=== PATIENT | female | born 1955 | race Caucasian/White ===

== ENCOUNTER 2017-11-04 04:57 | Emergency (ER) | payer MEDICAID, OTHER ==
[~2017-11-04] VITALS: Ht 157.5 cm; Wt 90.7 kg
--- NOTE | 2017-11-04 05:10 | NUR ---
Patient ambulated to ER with steady gait, reports she has pain on the knees, was trying to feel better so she can sleep, took several pills: tylenol w/ codeine, xanax, meloxicam, and oxycodone about 2 hours ago and was driven to ER by friend, took some Narcan on the way to ER, c/o drug overdose. Patient restless, reports feeling weird and anxious, denies suicidal ideation.
--- NOTE | 2017-11-04 05:15 | NUR ---
Dr. Reyes at bedside for MSE.
[2017-11-04 05:39] LABS: *BILIRUBIN,URIN NEGATIVE (NEGATIVE); *BLOOD, URINE Trace-intact (NEGATIVE); *CLARITY,URINE CLEAR (CLEAR); *COLOR,URINE YELLOW (YELLOW); *KETONES,URINE NEGATIVE (NEGATIVE); *PROTEIN,URINE NEGATIVE (NEGATIVE); *UROBILINOGEN,URINE 0.2 E.U./dl (NORMAL); LEUKOCYTE ESTERASE ,URINE 1+ (NEGATIVE); NITRITE, URINE NEGATIVE (NEGATIVE); UGLUCOSE NEGATIVE (NEGATIVE)
[2017-11-04 05:55] LABS: BACTERIA,URINE NONE SEEN /HPF (NONE SEEN); SQUAMOUS EPITHELIAL CELL,UR FEW /HPF (NONE SEEN)
[2017-11-04 05:59] LABS: BASOPHILS # (AUTO) 0.1 K/uL (0.0-8.0); BASOPHILS % (AUTO) 1.7 % (0.0-2.0); EOSINOPHILS # (AUTO) 0.3 K/uL (0.0-0.7); EOSINOPHILS % (AUTO) 4.2 % (0.0-7.0); HEMATOCRIT 35.1 % (31.2-41.9); HEMOGLOBIN 12.3 g/dL (10.9-14.3); LYMPHOCYTES # (AUTO) 3.3 K/uL (20.0-40.0); LYMPHOCYTES % (AUTO) 45.5 % (20.5-51.5); MEAN CORPUSCULAR HEMOGLOBIN 29.4 uug (24.7-32.8); MEAN CORPUSCULAR HGB CONC 35 g/dL (32.3-35.6); MEAN CORPUSCULAR VOLUME 84.1 fL (75.5-95.3); MONOCYTES # (AUTO) 0.5 K/uL (2.0-10.0); MONOCYTES % (AUTO) 7.2 % (0.0-11.0); NEUTROPHILS % (AUTO) 41.4 % (38.5-71.5); PLATELET COUNT (AUTO) 145 K/uL (179-408); RED BLOOD CELL COUNT(AUTO) 4.17 MIL/uL (3.63-4.92); WHITE BLOOD COUNT (AUTO) 7.4 K/uL (3.8-11.8)
[2017-11-04 06:06] LABS: *AMPHETAMINE, URINE NEGATIVE (NEGATIVE); *BARBITURATE, URINE NEGATIVE (NEGATIVE); *CANNABINOID, URINE NEGATIVE (NEGATIVE); *COCCAINE, URINE NEGATIVE (NEGATIVE); *OPIATE, URINE POSITIVE (NEGATIVE); *PHENCYCLIDINE SCREEN,URINE NEGATIVE (NEGATIVE)
[2017-11-04 06:13] LABS: CARBON DIOXIDE 26 mmol/L (21-32); CHLORIDE 105 mmol/L (98-107); CREATININE 1.1 mg/dL (0.6-1.3); GLUCOSE 95 mg/dL (74-106); POTASSIUM 3.8 mmol/L (3.5-5.1); UREA NITROGEN, BLOOD 20 mg/dL (7-18)
[2017-11-04 06:16] LABS: ETHANOL < 3 MG/DL (0-0)
--- NOTE | 2017-11-04 06:20 | NUR ---
Notified Russ Ware [facility] for psych evaluation. ETA in 1 hour ~3420.
--- NOTE | 2017-11-04 06:23 | NUR ---
Patient stated she wants to go home. notified.
[2017-11-04 06:26] LABS: ACETAMINOPHEN < 2.0 ug/mL (10-30); ALANINE AMINOTRANSFERASE 24 U/L (14-59); ALKALINE PHOSPHATASE 79 U/L (50-136); ASPARTATE AMINOTRANSFERASE 20 U/L (15-37); BILIRUBIN,DIRECT 0.1 mg/dL (0.0-0.2); BILIRUBIN,TOTAL 0.3 mg/dL (0.2-1.0); TOTAL PROTEIN, SERUM 7.8 g/dL (6.4-8.2)
--- NOTE | 2017-11-04 06:53 | NUR ---
Russ Ware LCSW arrived to ER.
--- NOTE | 2017-11-04 06:56 | NUR ---
SBAR report passed to Deneen CALERO.
--- NOTE | 2017-11-04 07:01 | NUR ---
Russ Ware at bedside for psych evaluation.
[2017-11-04] MEDS ORDERED: LORAZEPAM 0.5 MG TABLET PO ONE (07:15)
[2017-11-04] MEDS ORDERED: LORAZEPAM 1 MG TABLET ONE (07:19)
--- NOTE | 2017-11-04 07:35 | NUR ---
Patient discharged to home in stable conditon. Written and verbal after care instructions given. Patient verbalizes understanding of instructions.pt walks in steady gait. friend came and picker machine operator the pt.
[2017-11-04 07:59] VITALS: BP 129/81
[2017-11-04 09:10] LABS: EOSINOPHILS % (MANUAL) 2 % (0-8); LYMPHOCYTES % (MANUAL) 45 % (20-40); METAMYELOCYTES % 1 % (0-1); MONOCYTES % (MANUAL) 6 % (2-10); NEUTROPHILS % (MANUAL) 43 % (42-75)
[2017-11-04 09:13] LABS: REACTIVE LYMPHOCYTES 3 % (0-0)
== END 2017-11-04 07:40 | disposition home or self-care (01) ==
LOC: ER 05:02
DX: F32.9 Major depressive disorder, single episode, unspecified (principal); E78.5 Hyperlipidemia, unspecified
CPT/HCPCS: 36415; 71045; 80307; 85025; 93005; A4663; G0480; G0480-TC

== ENCOUNTER 2018-10-13 07:05 | Emergency (ER) | payer MEDICARE, OTHER ==
[~2018-10-13] VITALS: Ht 157.5 cm; Wt 93.0 kg
[2018-10-13] MEDS ORDERED: ROSU20TA31 PO (07:23)
[2018-10-13] MEDS ORDERED: LEVO112T2 PO (07:23)
[2018-10-13] MEDS ORDERED: PANT40TA4 PO (07:23)
[2018-10-13] MEDS ORDERED: ASPI-605 PO (07:23)
[2018-10-13] MEDS ORDERED: IRON (07:23)
[2018-10-13] MEDS ORDERED: ESCI10TA PO (07:23)
[2018-10-13] MEDS ORDERED: HYDR-3980 PO (07:23)
--- NOTE | 2018-10-13 07:28 | NUR ---
PT IS IN ROOM #5A. DR WISDOM EVALUATED THE PT.
--- NOTE | 2018-10-13 07:30 | NUR ---
Patient is resting comfortably on gurney while using her personal electronic device, NAD.
--- NOTE | 2018-10-13 07:37 | NUR ---
Urine cup was provided for specimen.
[2018-10-13 07:48] LABS: BASOPHILS % (AUTO) 0.4 % (0.0-2.0); HEMATOCRIT 36.8 % (31.2-41.9); HEMOGLOBIN 12.3 g/dL (10.9-14.3); LYMPHOCYTES # (AUTO) 1.1 K/uL (20.0-40.0); LYMPHOCYTES % (AUTO) 16.2 % (20.5-51.5); MEAN CORPUSCULAR HEMOGLOBIN 29.2 uug (24.7-32.8); MEAN CORPUSCULAR HGB CONC 34 g/dL (32.3-35.6); MEAN CORPUSCULAR VOLUME 87.3 fL (75.5-95.3); MONOCYTES # (AUTO) 0.1 K/uL (2.0-10.0); NEUTROPHILS # (AUTO) 5.4 K/uL (1.8-8.9); NEUTROPHILS % (AUTO) 81.4 % (38.5-71.5); PLATELET COUNT (AUTO) 190 K/uL (179-408); RED BLOOD CELL COUNT(AUTO) 4.21 MIL/uL (3.63-4.92); WHITE BLOOD COUNT (AUTO) 6.7 K/uL (3.8-11.8)
[2018-10-13 07:52] LABS: *BILIRUBIN,URIN NEGATIVE (NEGATIVE); *BLOOD, URINE 2+ (NEGATIVE); *CLARITY,URINE CLEAR (CLEAR); *COLOR,URINE YELLOW (YELLOW); *KETONES,URINE NEGATIVE (NEGATIVE); *UROBILINOGEN,URINE 0.2 E.U./dl (NORMAL); LEUKOCYTE ESTERASE ,URINE TRACE (NEGATIVE); NITRITE, URINE NEGATIVE (NEGATIVE); UGLUCOSE NEGATIVE (NEGATIVE)
[2018-10-13 08:00] LABS: CARBON DIOXIDE 28 mmol/L (21-32); CHLORIDE 100 mmol/L (98-107); CREATININE 0.8 mg/dL (0.6-1.3); ETHANOL < 3 MG/DL (0-0); GLUCOSE 159 mg/dL (74-106); POTASSIUM 4.8 mmol/L (3.5-5.1); UREA NITROGEN, BLOOD 35 mg/dL (7-18)
[2018-10-13 08:04] LABS: ACETAMINOPHEN < 2.0 ug/mL (10-30); ALANINE AMINOTRANSFERASE 23 U/L (14-59); ALKALINE PHOSPHATASE 79 U/L (50-136); ASPARTATE AMINOTRANSFERASE 14 U/L (15-37); BILIRUBIN,DIRECT 0.1 mg/dL (0.0-0.2); BILIRUBIN,TOTAL 0.2 mg/dL (0.2-1.0); TOTAL PROTEIN, SERUM 7.5 g/dL (6.4-8.2)
[2018-10-13 08:04] LABS: *AMPHETAMINE, URINE NEGATIVE (NEGATIVE); *BARBITURATE, URINE NEGATIVE (NEGATIVE); *CANNABINOID, URINE NEGATIVE (NEGATIVE); *COCCAINE, URINE NEGATIVE (NEGATIVE); *OPIATE, URINE POSITIVE (NEGATIVE); *PHENCYCLIDINE SCREEN,URINE NEGATIVE (NEGATIVE); BACTERIA,URINE FEW /HPF (NONE SEEN); RBC,URINE 0-3 /HPF (0-3); SQUAMOUS EPITHELIAL CELL,UR FEW /HPF (NONE SEEN); WBC,URINE 0-3 /HPF (0-3)
--- NOTE | 2018-10-13 10:08 | NUR ---
Russ Ware is@bedside evaluating the patient.
--- NOTE | 2018-10-13 10:12 | NUR ---
Patient is waiting for discharge papers@at this time.
--- NOTE | 2018-10-13 10:19 | NUR ---
Patient discharged to home in stable conditon & steady gait. Written and verbal after care instructions given to patient. Patient verbalizes understanding and compliance of instructions.
== END 2018-10-13 10:20 | disposition home or self-care (01) ==
LOC: ER 07:05
DX: G47.00 Insomnia, unspecified (principal); E78.5 Hyperlipidemia, unspecified; K21.9 Gastro-esophageal reflux disease without esophagitis; E03.9 Hypothyroidism, unspecified; Z79.82 Long term (current) use of aspirin; Z79.899 Other long term (current) drug therapy
CPT/HCPCS: 36415; 80048; 80076; 80307; 81001; 85025; 93005; 99284; G0480 ×2; G0481; A4663

== ENCOUNTER 2019-08-12 15:38 | Inpatient (IN) | payer MEDICARE, OTHER ==
[~2019-08-12] VITALS: Ht 157.5 cm; Wt 93.0 kg
[~2019-08-12 15:38] MED LIST: ASPI-605 PO; ESCI10TA PO; HYDR-3980 PO; IRON; LEVO112T2 PO; PANT40TA4 PO; ROSU20TA32 PO
[2019-08-12 16:04] LABS: BASOPHILS % (AUTO) 0.6 % (0.0-2.0); EOSINOPHILS % (AUTO) 0.2 % (0.0-7.0); HEMATOCRIT 35.4 % (31.2-41.9); HEMOGLOBIN 11.8 g/dL (10.9-14.3); LYMPHOCYTES # (AUTO) 1.7 K/uL (20.0-40.0); LYMPHOCYTES % (AUTO) 21.9 % (20.5-51.5); MEAN CORPUSCULAR HEMOGLOBIN 29.8 uug (24.7-32.8); MEAN CORPUSCULAR HGB CONC 33 g/dL (32.3-35.6); MEAN CORPUSCULAR VOLUME 89.2 fL (75.5-95.3); MONOCYTES # (AUTO) 0.4 K/uL (2.0-10.0); MONOCYTES % (AUTO) 4.8 % (0.0-11.0); NEUTROPHILS # (AUTO) 5.5 K/uL (1.8-8.9); NEUTROPHILS % (AUTO) 72.5 % (38.5-71.5); PLATELET COUNT (AUTO) 192 K/uL (179-408); RED BLOOD CELL COUNT(AUTO) 3.97 MIL/uL (3.63-4.92); WHITE BLOOD COUNT (AUTO) 7.5 K/uL (3.8-11.8)
[2019-08-12] MEDS ORDERED: NITROGLYCERIN 0.4 MG/TAB BOTTLE SL ONE ×2 (16:11→16:15)
[2019-08-12] MEDS ORDERED: ASPIRIN 325 MG TABLET ONE (16:11)
[2019-08-12] MEDS ORDERED: ASPIRIN 325 MG TABLET PO ONE (16:15)
[2019-08-12 16:19] LABS: CREATININE 0.8 mg/dL (0.6-1.3); POTASSIUM 4.4 mmol/L (3.5-5.1)
[2019-08-12] MEDS ORDERED: LORA-258 PO (16:20)
[2019-08-12 16:27] LABS: BILIRUBIN,DIRECT 0.1 mg/dL (0.0-0.2); BILIRUBIN,TOTAL 0.4 mg/dL (0.2-1.0); TOTAL PROTEIN, SERUM 7.2 g/dL (6.4-8.2)
--- NOTE | 2019-08-12 16:45 | NUR ---
pt states that the cp has been the same, but she feels she is breathing easier.
--- NOTE | 2019-08-12 17:00 | NUR ---
pt on ra 94%, o2 placed, improved the o2 to 98%.
[2019-08-12] MEDS ORDERED: IOHEXOL 350 100 ML INFUS..BTL ONE (17:01)
[2019-08-12] MEDS ORDERED: IV NORMAL SALINE 250 ML IV ONE (17:01)
[2019-08-12] MEDS ORDERED: SWABABLE VALVE TRANSFER SET EA MC ONE (17:01)
[2019-08-12] MEDS ORDERED: NEBI5TAB8 PO (17:32)
[2019-08-12] MEDS ORDERED: ZOLP5TAB2 PO (18:43)
--- NOTE | 2019-08-12 19:52 | NUR ---
pt transfered to floor in stable condition.
--- NOTE | 2019-08-12 19:55 | NUR ---
PATIENT BROUGHT FROM ED VIA GURNEY , ADMITTED TO TELEMETRY WITH DIAGNOSIS CHEST PAIN. PATIENT ALERT AND ORIENTED X 4. PATIENT SATED SHE STILL FEELS HEAVINESS IN THE CHEST AND MILD SOB. PLACED ON O2 @ 1LPM WITH O2 SAT 98%. B/P NOTED 164/73. HR 64. NSR ON THE MONITOR. WILL CONTINUE TO MONITOR.
[2019-08-12 20:03] VITALS: BP 164/73
[2019-08-12] MEDS ORDERED: MAGNESIUM HYDROXIDE 30 ML LIQUID UDC PO PRN (20:15)
[2019-08-12] MEDS ORDERED: Z GUARD REMEDY PASTE 57 GM TUBE TOP PRN (20:15)
[2019-08-12] MEDS ORDERED: HYDROCODONE/APAP 5-325MG TABLET PO PRN (20:15)
[2019-08-12] MEDS ORDERED: ACETAMINOPHEN 325 MG TABLET PO PRN (20:15)
[2019-08-12] MEDS ORDERED: ONDANSETRON 4 MG/2 ML VIAL IV PRN (20:15)
--- NOTE | 2019-08-12 20:45 | NUR ---
NOTIFIED OF ELEVATED B/P 164/73 WITH NEW ORDER
[2019-08-12] MEDS ORDERED: ZOLPIDEM 5 MG TABLET PO SCH (21:00)
[2019-08-12] MEDS: ATORVASTATIN 10 MG TABLET PO SCH (21:05)
[2019-08-12] MEDS: ENOXAPARIN SODIUM 40 MG/0.4 ML DISP.SYRIN SQ SCH (21:06)
[2019-08-12] MEDS ORDERED: hydrALAZINE HCL 10 MG TABLET PO PRN (21:15)
--- NOTE | 2019-08-12 21:40 | NUR ---
B/P MEDICATION ADMINISTERED ORDERED. WILL CONTINUE OT MONITOR
[2019-08-13] VITALS: BP 145/64
[2019-08-13] MEDS: ZOLPIDEM 5 MG TABLET PO PRN ×2 (00:42→23:20)
[2019-08-13 04:00] VITALS: BP 143/66
[2019-08-13] MEDS: LEVOTHYROXINE SODIUM 112 MCG TABLET PO SCH (06:05)
[2019-08-13] MEDS: PANTOPRAZOLE SODIUM 40 MG TABLET.DR PO SCH (06:05)
[2019-08-13 06:39] LABS: BASOPHILS % (AUTO) 0.5 % (0.0-2.0); EOSINOPHILS % (AUTO) 0.3 % (0.0-7.0); HEMATOCRIT 32.4 % (31.2-41.9); HEMOGLOBIN 11.1 g/dL (10.9-14.3); LYMPHOCYTES # (AUTO) 1.6 K/uL (20.0-40.0); LYMPHOCYTES % (AUTO) 25.9 % (20.5-51.5); MEAN CORPUSCULAR HEMOGLOBIN 30.5 uug (24.7-32.8); MEAN CORPUSCULAR HGB CONC 34 g/dL (32.3-35.6); MEAN CORPUSCULAR VOLUME 88.5 fL (75.5-95.3); MONOCYTES # (AUTO) 0.4 K/uL (2.0-10.0); NEUTROPHILS # (AUTO) 4.3 K/uL (1.8-8.9); NEUTROPHILS % (AUTO) 67.3 % (38.5-71.5); PLATELET COUNT (AUTO) 157 K/uL (179-408); RED BLOOD CELL COUNT(AUTO) 3.66 MIL/uL (3.63-4.92); WHITE BLOOD COUNT (AUTO) 6.3 K/uL (3.8-11.8)
--- NOTE | 2019-08-13 06:57 | NUR ---
PATIENT SLEPT FOR 2-3 HRS. PAIN MEDICATION ADMINISTERED ON C/O BILATERAL KNEE PAIN. NO CHEST PAIN NOTED. SR ON THE MONITOR.
[2019-08-13 07:16] LABS: THYROID STIMULATING HORMONE 0.226 mIU/mL (0.358-3.740)
[2019-08-13 07:23] LABS: PHOSPHOROUS 4.6 mg/dL (2.5-4.9); POTASSIUM 4.5 mmol/L (3.5-5.1)
--- NOTE | 2019-08-13 08:00 | NUR ---
RESTING WITH EYES CLOSED, NO SS OF CP OR SOB. O2 AT 2L NC SATURATING 97%. SR ON MONITOR. OBSERVED
[2019-08-13] MEDS: ASPIRIN EC 81 MG TABLET.DR PO SCH (08:39)
[2019-08-13] MEDS: ESCITALOPRAM OXALATE 10 MG TABLET PO SCH (08:40)
[2019-08-13] MEDS: LISINOPRIL 5 MG TABLET PO SCH (08:42)
[2019-08-13] MEDS: METOPROLOL TARTRATE 25 MG TABLET PO SCH ×2 (08:42→16:27)
[2019-08-13] MEDS: MORPHINE SULFATE 2 MG/1 ML DISP.SYRIN IV PRN ×3 (08:48→23:20)
[2019-08-13 11:02] VITALS: BP 122/47
--- NOTE | 2019-08-13 12:13 | NUR ---
SEEN BY AILYN KRAUS FOR FOLLOW-UP SEE NOTES.. CONTINUE WITH IV ZOSYN NO ADVERSE REACTION NOTED
--- NOTE | 2019-08-13 12:29 | NUR ---
SEEN AND EXAMINED BY DR FLORES FOR CARDIO FOLLOW-UP SEE NOTES.
[2019-08-13 15:13] VITALS: BP 118/51
--- NOTE | 2019-08-13 18:04 | NUR ---
FOR CTA OF THE HEART IN AM AT [facility]. SB ON MONITOR 52-56/MIN
[2019-08-13 20:00] VITALS: BP 92/57
[2019-08-13] MEDS: ATORVASTATIN 10 MG TABLET PO SCH (21:03)
[2019-08-13] MEDS: ENOXAPARIN SODIUM 40 MG/0.4 ML DISP.SYRIN SQ SCH (21:04)
[2019-08-14] VITALS: BP 133/53
[2019-08-14 04:00] VITALS: BP 132/64
[2019-08-14 05:20] LABS: *BILIRUBIN,URIN NEGATIVE (NEGATIVE); *CLARITY,URINE CLEAR (CLEAR); *COLOR,URINE YELLOW (YELLOW); *KETONES,URINE NEGATIVE (NEGATIVE); *UROBILINOGEN,URINE 0.2 E.U./dl (NORMAL); LEUKOCYTE ESTERASE ,URINE 1+ (NEGATIVE); NITRITE, URINE NEGATIVE (NEGATIVE); UGLUCOSE NEGATIVE (NEGATIVE)
[2019-08-14 05:25] LABS: *BLOOD, URINE TRACE (NEGATIVE)
[2019-08-14 05:32] LABS: BACTERIA,URINE NONE SEEN /HPF (NONE SEEN); MUCUS,URINE FEW /LPF (0-FEW); SQUAMOUS EPITHELIAL CELL,UR FEW /HPF (NONE SEEN)
[2019-08-14 05:37] LABS: *AMPHETAMINE, URINE NEGATIVE (NEGATIVE); *BARBITURATE, URINE NEGATIVE (NEGATIVE); *CANNABINOID, URINE NEGATIVE (NEGATIVE); *COCCAINE, URINE NEGATIVE (NEGATIVE); *PHENCYCLIDINE SCREEN,URINE NEGATIVE (NEGATIVE)
[2019-08-14 05:38] LABS: *OPIATE, URINE POSITIVE (NEGATIVE)
[2019-08-14 06:28] LABS: BASOPHILS % (AUTO) 0.5 % (0.0-2.0); EOSINOPHILS % (AUTO) 0.7 % (0.0-7.0); HEMATOCRIT 33.3 % (31.2-41.9); HEMOGLOBIN 11.4 g/dL (10.9-14.3); LYMPHOCYTES # (AUTO) 1.8 K/uL (20.0-40.0); LYMPHOCYTES % (AUTO) 24.4 % (20.5-51.5); MEAN CORPUSCULAR HEMOGLOBIN 30.4 uug (24.7-32.8); MEAN CORPUSCULAR HGB CONC 34 g/dL (32.3-35.6); MEAN CORPUSCULAR VOLUME 88.8 fL (75.5-95.3); MONOCYTES # (AUTO) 0.4 K/uL (2.0-10.0); MONOCYTES % (AUTO) 5.6 % (0.0-11.0); NEUTROPHILS % (AUTO) 68.8 % (38.5-71.5); PLATELET COUNT (AUTO) 190 K/uL (179-408); RED BLOOD CELL COUNT(AUTO) 3.75 MIL/uL (3.63-4.92); WHITE BLOOD COUNT (AUTO) 7.3 K/uL (3.8-11.8)
[2019-08-14] MEDS: PANTOPRAZOLE SODIUM 40 MG TABLET.DR PO SCH (06:46)
[2019-08-14] MEDS: LEVOTHYROXINE SODIUM 112 MCG TABLET PO SCH (06:46)
--- NOTE | 2019-08-14 06:59 | NUR ---
NEW IV STARTED ON RAC 18 G STARTED . WAITING FOR CTA OF HEART . NO C/O PAIN OR DISCOMFORT. NSR ON THE MONITOR
--- NOTE | 2019-08-14 08:00 | NUR ---
AWAKE ALERT AND ORIENTED X3 DENIES ACUTE PAIN OR DISTRESS. AWAITING SCHEDULE FOR CTA HEART AT [facility]. SB ON MONITOR 54-56/MIN
[2019-08-14] MEDS: ESCITALOPRAM OXALATE 10 MG TABLET PO SCH (08:25)
[2019-08-14] MEDS: ASPIRIN EC 81 MG TABLET.DR PO SCH (08:25)
[2019-08-14] MEDS: LISINOPRIL 5 MG TABLET PO SCH (08:26)
[2019-08-14] MEDS: METOPROLOL TARTRATE 25 MG TABLET PO SCH ×2 (08:26→16:53)
[2019-08-14 09:52] LABS: POTASSIUM 4.4 mmol/L (3.5-5.1)
[2019-08-14 11:05] VITALS: BP 127/55
--- NOTE | 2019-08-14 12:00 | NUR ---
SEEN BY RUBBER CURER SEE NOTES
--- NOTE | 2019-08-14 13:00 | NUR ---
SEEN BY DR KRAUS NOTED RESULTS OF URINE WILL START ON KEFLEX PO
[2019-08-14] MEDS: CEphaleXIN 500 MG CAPSULE PO SCH ×2 (13:12→21:31)
[2019-08-14 15:03] VITALS: BP 130/51
--- NOTE | 2019-08-14 16:59 | NUR ---
lopressor not given HR 54
--- NOTE | 2019-08-14 16:59 | NUR ---
to [facility] for cta heart via ambulance
--- NOTE | 2019-08-14 18:43 | NUR ---
STILL AT [place] FOR CTA HEART
--- NOTE | 2019-08-14 19:30 | NUR ---
RECEIVED PT AWAKE, ALERT AND ORIENTEDX4. PT IN NO ACUTE DISTRESS. IV INTACT.PT ON NASAL CANNULA. FAMILY AT BEDSIDE. SAFETY AND COMFORT PROVIDED.WILL CONTINUE TO MONITOR.
[2019-08-14] MEDS: ATORVASTATIN 10 MG TABLET PO SCH (20:15)
[2019-08-14] MEDS: ENOXAPARIN SODIUM 40 MG/0.4 ML DISP.SYRIN SQ SCH (20:16)
[2019-08-14 20:20] VITALS: BP 147/54
[2019-08-14] MEDS: MORPHINE SULFATE 2 MG/1 ML DISP.SYRIN IV PRN (22:46)
[2019-08-14] MEDS: ZOLPIDEM 5 MG TABLET PO PRN (23:24)
[2019-08-14 23:45] VITALS: BP 139/60
[2019-08-15] VITALS: BP 139/60
[2019-08-15 04:00] VITALS: BP 123/56
[2019-08-15] MEDS: CEphaleXIN 500 MG CAPSULE PO SCH ×2 (05:13→13:05)
--- NOTE | 2019-08-15 06:09 | NUR ---
PT SLEPT INTERMITTENTLY. PT IN NO ACUTE DISTRESS. PRESCRIBED MEDICATION GIVEN AND PT TOLERATED IT WELL. MORPHINE GIVEN AT 2246H FOR GENERALIZED PAIN. PT GIVEN MOM PER PT REQUEST. PT TOLERATED IT WELL. SAFETY AND COMFORT PROVIDED. WILL ENDORSED TO INCOMING NURSE FOR CONTINUITY OF CARE.
[2019-08-15] MEDS: LEVOTHYROXINE SODIUM 112 MCG TABLET PO SCH (06:12)
[2019-08-15] MEDS: PANTOPRAZOLE SODIUM 40 MG TABLET.DR PO SCH (06:12)
[2019-08-15 06:36] LABS: EOSINOPHILS # (AUTO) 0.1 K/uL (0.0-0.7)
[2019-08-15 06:49] LABS: BASOPHILS # (AUTO) 0.1 K/uL (0.0-8.0); EOSINOPHILS % (AUTO) 0.7 % (0.0-7.0); LYMPHOCYTES % (AUTO) 20.3 % (20.5-51.5); MEAN CORPUSCULAR HEMOGLOBIN 30.1 uug (24.7-32.8); MEAN CORPUSCULAR HGB CONC 33 g/dL (32.3-35.6); MEAN CORPUSCULAR VOLUME 90.2 fL (75.5-95.3); MONOCYTES # (AUTO) 0.6 K/uL (2.0-10.0); MONOCYTES % (AUTO) 5.7 % (0.0-11.0); NEUTROPHILS # (AUTO) 7.1 K/uL (1.8-8.9); NEUTROPHILS % (AUTO) 72.3 % (38.5-71.5); PLATELET COUNT (AUTO) 186 K/uL (179-408); RED BLOOD CELL COUNT(AUTO) 4.16 MIL/uL (3.63-4.92)
[2019-08-15 06:54] LABS: HEMATOCRIT 37.5 % (31.2-41.9); HEMOGLOBIN 12.6 g/dL (10.9-14.3); WHITE BLOOD COUNT (AUTO) 9.9 K/uL (3.8-11.8)
[2019-08-15 06:57] LABS: PHOSPHOROUS 4.9 mg/dL (2.5-4.9); POTASSIUM 4.2 mmol/L (3.5-5.1)
[2019-08-15] MEDS: LISINOPRIL 5 MG TABLET PO SCH (08:36)
[2019-08-15] MEDS: ESCITALOPRAM OXALATE 10 MG TABLET PO SCH (08:36)
[2019-08-15] MEDS: ASPIRIN EC 81 MG TABLET.DR PO SCH (08:36)
[2019-08-15] MEDS: METOPROLOL TARTRATE 25 MG TABLET PO SCH (08:37)
[2019-08-15] MEDS ORDERED: CEPH500C2 PO (11:10)
[2019-08-15 11:29] VITALS: BP 114/56
--- NOTE | 2019-08-15 12:00 | NUR ---
PATIENT SEEN AND EXAMINED BY PASCHUAL DNP WITH ORDER TO DISCHARGE PATIENT HOME TODAY PATIENT AWARE AND STATED WILL BE ABLE TO LEAVE IN ABOUT 2 HOURS.
--- NOTE | 2019-08-15 14:00 | NUR ---
PATIENT DISCHARGED HOME SELF CARE WITH DISCHARGE INSTRUCTIONS AND ALL OS HER PERSONAL BELONGINGS AND HER OWN HOME MEDICATIONS FROM [facility] AND PATIENT INSTRUCTED THAT HER ANTIBIOTICS WAS SENT ELECTRONICALLY TO HER PRIVATE PHARMACY AND TO CALL FOR A FOLLOW UP APPOINTMENT WITH HER PRIMARY DOCTOR WITHIN THE NEXT ONE WEEK AND SHE EXPRESSED UNDERSTANDING.
== END 2019-08-15 14:00 | disposition home or self-care (01) | DRG 305 ==
LOC: ER 15:38 → UNDOADMIN 18:03 → TELE3 18:03
PROVIDERS: ADMIT Hospitalist; ATTEND Hospitalist
PROC: B2211ZZ Computerized Tomography (CT Scan) of Multiple Coronary Arteries using Low Osmolar Contrast (ICD-10-PCS; principal; 2019-08-14)
DX: I16.9 Hypertensive crisis, unspecified (principal); N39.0 Urinary tract infection, site not specified; E03.9 Hypothyroidism, unspecified; E78.5 Hyperlipidemia, unspecified; Z98.84 Bariatric surgery status; G89.29 Other chronic pain; Z87.891 Personal history of nicotine dependence; Z90.49 Acquired absence of other specified parts of digestive tract; E66.9 Obesity, unspecified; Z68.37 Body mass index [BMI] 37.0-37.9, adult; R60.0 Localized edema; M54.5 Low back pain; I25.10 Atherosclerotic heart disease of native coronary artery without angina pectoris; M25.562 Pain in left knee; M25.561 Pain in right knee; I10 Essential (primary) hypertension; K43.9 Ventral hernia without obstruction or gangrene; Z80.41 Family history of malignant neoplasm of ovary
CPT/HCPCS: 36415; 70030-TC; 71045; 71275; 80307; 83735; 84100; 84443; 85025; 85730; 87086; 93005; 93307; A4663; G0378; J1650; J2270; J7050; Q9967

== ENCOUNTER 2024-10-18 20:53 | Emergency (ER) | payer MEDICARE, OTHER ==
[~2024-10-18] VITALS: Ht 160 cm; Wt 78.5 kg
[~2024-10-18 20:53] MED LIST changes: +CEPH500C2 PO; -IRON; +LORA-258 PO; +NEBI5TAB8 PO; -PANT40TA4 PO; +PANT40TA49 PO; +ZOLP5TAB2 PO
[2024-10-18] MEDS ORDERED: NEOMY/BACITRA/POLYMYXIN B OINT UD PACKET TP ONE (23:50)
[2024-10-18] MEDS ORDERED: NAPROXEN 500 MG TABLET ONE (23:50)
[2024-10-18] MEDS ORDERED: HYDROCODONE/APAP 5-325MG TABLET ONE (23:51)
[2024-10-18] MEDS ORDERED: TDAP DIPH,PERTUSS,TET VAC/PF 0.5 ML DISP.SYRIN IM ONE (23:51)
[2024-10-18 23:56] VITALS: TEMP 97.5
[2024-10-18] MEDS: NEOMY/BACITRA/POLYMYXIN B OINT UD PACKET TP ONE (23:56)
[2024-10-18] MEDS: TDAP DIPH,PERTUSS,TET VAC/PF 0.5 ML DISP.SYRIN IM ONE (23:56)
[2024-10-18] MEDS: NAPROXEN 500 MG TABLET PO ONE (23:56)
[2024-10-18] MEDS: HYDROCODONE/APAP 5-325MG TABLET PO ONE (23:56)
[2024-10-19 00:28] VITALS: BP 110/57; O2SAT 98
== END 2024-10-19 00:29 | disposition home or self-care (01) ==
LOC: ER 21:55
DX: M54.59 Other low back pain (principal); R45.1 Restlessness and agitation; M25.551 Pain in right hip; M25.552 Pain in left hip; E78.5 Hyperlipidemia, unspecified; F17.200 Nicotine dependence, unspecified, uncomplicated; F32.A Depression, unspecified; Z79.82 Long term (current) use of aspirin; Z79.899 Other long term (current) drug therapy; Z96.659 Presence of unspecified artificial knee joint; W01.0XXA Fall on same level from slipping, tripping and stumbling without subsequent striking against object, initial encounter; Y93.89 Activity, other specified; Y92.480 Sidewalk as the place of occurrence of the external cause; Y99.8 Other external cause status
CPT/HCPCS: 72100; 72110; 72220; 73521; 90715; A4606; A4663